=== PATIENT | female | born 1930 | race Caucasian/White ===

== ENCOUNTER 2019-02-02 04:51 | Inpatient (IN) | payer OTHER ==
[~2019-02-02] VITALS: Ht 172.7 cm; Wt 76.7 kg
[2019-02-02 04:55] VITALS: BP_SYST 130
--- NOTE | 2019-02-02 04:55 | NUR ---
Patient to ER bed 4 to gown for evaluation. Side rails up.
[2019-02-02] MEDS ORDERED: ONDANSETRON HCL 4 MG/2 ML VIAL IVP ONE ×3 (05:00→05:45)
[2019-02-02] MEDS ORDERED: NS 500 ML IV ONE (05:00)
--- NOTE | 2019-02-02 05:00 | NUR ---
ER at bedside examining patient.
[2019-02-02] MEDS ORDERED: MORPHINE 2 MG/ML INJ. SYRINGE IVP ONE (05:15)
--- NOTE | 2019-02-02 05:15 | NUR ---
Pt brought in by BLS ambulance. Pt chief complaint of nausea/vomiting for approx 3 days persistently . Pt states she has had vomiting and diarrhea for approx 1 month on and off. Pt awake, alert, oriented x4. Pt denies chest pain, shortness of breath, dizziness. Pt denies any other medical complaint at this time. Pt vss. Resting in ED bed.
--- NOTE | 2019-02-02 06:25 | NUR ---
Unable to do medication reconcilation due to pt unable to recall medications and dosages.
[2019-02-02 07:05] LABS: BASOPHILS % (AUTO) 0.3 % (0.0-2.0); EOSINOPHILS % (AUTO) 0.4 % (0.0-4.0); HEMATOCRIT 38.6 % (36-48); LYMPHOCYTES # (AUTO) 0.5 K/uL (1.0-5.5); LYMPHOCYTES % (AUTO) 7.6 % (20.5-51.5); MEAN CORPUSCULAR HEMOGLOBIN 28 pg (27-31); MEAN CORPUSCULAR HGB CONC 34 % (32-36); MEAN CORPUSCULAR VOLUME 84 fL (79.0-98.0); MONOCYTES # (AUTO) 0.7 K/uL (0.0-1.0); MONOCYTES % (AUTO) 10.5 % (1.7-9.3); NEUTROPHILS # (AUTO) 5.8 K/uL (1.8-7.7); NEUTROPHILS % (AUTO) 81.2 % (40.0-70.0); PLATELET COUNT (AUTO) 69 K/uL (130-430); RED BLOOD CELL COUNT(AUTO) 4.59 MIL/uL (4.2-6.2); RED CELL DISTRIBUTION WIDTH 15.1 % (9.0-15.0); WHITE BLOOD COUNT (AUTO) 7.1 K/uL (4.8-10.8)
--- NOTE | 2019-02-02 07:07 | NUR ---
Report Given to FIONA Montanez and FIONA Garibay
--- NOTE | 2019-02-02 07:15 | NUR ---
report received from Suraj JAIMES. Pt is in stable condition. Will continue to monitor.
[2019-02-02 07:21] LABS: ANION GAP 10 (5-15); CALCIUM 8.5 mg/dL (8.4-11.0); CHLORIDE 100 mmol/L (98-107); CREATININE 0.76 mg/dL (0.55-1.30); GLUCOSE 103 mg/dL (70-99); POTASSIUM 3.3 mmol/L (3.5-5.1); SODIUM SERUM 136 mmol/L (136-145); UREA NITROGEN, BLOOD 24 mg/dL (8-21)
[2019-02-02 07:27] LABS: ALANINE AMINOTRANSFERASE 18 U/L (12-78); ALBUMIN 3.9 g/dL (3.4-4.8); ASPARTATE AMINOTRANSFERASE 16 U/L (10-37); LIPASE 382 U/L (73-393); TOTAL BILIRUBIN 0.8 mg/dL (0.0-1.0)
[2019-02-02] MEDS ORDERED: HYDR-3607 PO (08:05)
[2019-02-02] MEDS ORDERED: LOSA25TA3 PO (08:08)
[2019-02-02] MEDS ORDERED: TRAZ-250 PO (08:08)
[2019-02-02] MEDS ORDERED: METO25TA3 PO (08:08)
[2019-02-02] MEDS ORDERED: LIP10 PO (08:08)
[2019-02-02] MEDS ORDERED: PRO40 PO (08:08)
[2019-02-02] MEDS ORDERED: DONE10TA44 PO (08:08)
[2019-02-02] MEDS ORDERED: LEVO25TA7 PO (08:08)
[2019-02-02] MEDS ORDERED: MEMA10TA21 PO (08:11)
[2019-02-02 08:22] LABS: PROTHROMBIN TIME 10.2 SECS (9.5-12.5)
--- NOTE | 2019-02-02 08:25 | NUR ---
Medication reconciliation completed with information provided by pt's cathryn. Any prior medication reconciliation on file was reviewed and corrected.
--- NOTE | 2019-02-02 08:26 | NUR ---
pt will be admitted under the care of Dr. Mercado. Orders received
--- NOTE | 2019-02-02 08:37 | NUR ---
admission notes: received pt from e.r. under dr rogelio atkins, came from home thru e.r., with diagnosis of vomiting.
[2019-02-02 08:50] VITALS: BP_SYST 140
--- NOTE | 2019-02-02 08:50 | NUR ---
Patient will be admitted to care of Dr Mercado. Admitted to Telemetry unit. Will go to room 104 A. Belongings list completed. Complete and up to date summary report printed. SBAR report to be given at bedside to Ronald JAIMES. IV 22g L hand patent and intact
--- NOTE | 2019-02-02 09:05 | NUR ---
Paged Dr. Mercado through answering service regarding suspension and unable to admit patient.
[2019-02-02 09:19] VITALS: BP_SYST 140
[2019-02-02] MEDS ORDERED: ACETAMINOPHEN 325 MG TABLET PO PRN (09:45)
[2019-02-02] MEDS ORDERED: ONDANSETRON HCL 4 MG/2 ML VIAL IVP PRN (09:45)
[2019-02-02] MEDS ORDERED: FAMOTIDINE 20 MG TABLET PO ONE (10:00)
[2019-02-02] MEDS ORDERED: traZODone HCL 50 MG TABLET (DESYREL) PO ONE (10:15)
[2019-02-02] MEDS ORDERED: HYDROcodone/ACETAMIN 5-325 MG TAB (NORCO/ VICODIN) PO ONE (10:15)
[2019-02-02] MEDS ORDERED: ATORVASTATIN 10 MG TABLET PO ONE (10:15)
[2019-02-02] MEDS ORDERED: METOPROLOL SUCCINATE 25 MG TAB.SR.24H (TOPROL XL) PO ONE (10:15)
[2019-02-02] MEDS ORDERED: MEMANTINE HCL 5 MG TABLET PO ONE (10:15)
[2019-02-02] MEDS ORDERED: LEVOTHYROXINE SODIUM 0.025 MG TABLET PO ONE (10:15)
[2019-02-02] MEDS ORDERED: LOSARTAN POTASSIUM 25 MG TABLET PO ONE (10:15)
[2019-02-02] MEDS: NACL 0.9% 1,000 ML IV SCH ×2 (10:29→21:39)
[2019-02-02 12:39] VITALS: BP_SYST 129
--- NOTE | 2019-02-02 16:00 | NUR ---
pt connected to bilat scd. educated patient that scd can be removed before she use the bedside commode, encouraged to call nurses for assistance.
[2019-02-02 16:35] VITALS: BP_SYST 137
--- NOTE | 2019-02-02 17:00 | NUR ---
patient assisted to bedside commode ( 4th time for the day ), pt having diarrhea, sample sent earlier to lab for stool wbc and stool culture.
--- NOTE | 2019-02-02 19:26 | NUR ---
closing notes, pt has been stable , bp within patients normal limits, pt still having diarrhea but no c/o of abd pain. diarrhe x4-5 times since admission. stool sampl sent for wbc and culture. pt given clear liquid diet as ordered by dr wallis.. pt assisted to bedside commode, endorsed to night nurse.
--- NOTE | 2019-02-02 19:30 | NUR ---
OPENING NOTES Pt and endorsement received from day shift nurse. Pt is AAOx4, lying in bed. Pt on IVF with NS at 100ml/hr and infusing well on left hand G22. No complains of pain or discomfort at this time. No signs of acute distress or SOB noted. Encouraged to use call light when needed. Safety precautions in place with 3 side rails up, wheels locked, bed alarm on and in lowest level. Call light with pt. Will continue to monitor.
[2019-02-02] MEDS: HYDROcodone/ACETAMIN 5-325 MG TAB (NORCO/ VICODIN) PO SCH (21:00)
[2019-02-02 21:32] VITALS: BP_SYST 156
[2019-02-02] MEDS: DONEPEZIL HCL 5 MG TABLET (ARICEPT) PO SCH (21:37)
[2019-02-02] MEDS: MEMANTINE HCL 5 MG TABLET PO SCH (21:38)
--- NOTE | 2019-02-02 21:40 | NUR ---
MED PASS All due meds given and pt tolerated well. Aspiration precaution maintained with head elevated at 45 degrees. No complains of pain and no signs of acute distress noted. Safety precautions in place and call light with pt. Will continue to monitor.
--- NOTE | 2019-02-02 23:00 | NUR ---
IV INSERTION Pt's IV was infiltrated. New IV inserted on left hand G22 by FIONA Jennings, with good blood return and flushable with saline. Pt tolerated well. Reconnected IVF and is infusing well. Will continue to monitor.
[2019-02-03 00:33] VITALS: BP_SYST 150
--- NOTE | 2019-02-03 01:30 | NUR ---
ROUNDS Assisted pt to bedside commode, pt had a minimal amount of watery stool and moderate amount of urine. Perineal care rendered and assisted pt back to bed, barrier cream applied on perineal redness. No signs of acute distress noted. IVF infusing well. Safety precautions in place and call light with pt. Will continue to monitor.
--- NOTE | 2019-02-03 04:02 | NUR ---
ROUNDS Pt is resting in bed with both eyes closed, with visible chest rise and fall with non-labored breathing noted. Pt is easily arousable. No complains of pain and no signs of acute distress noted. IVF infusing well. No needs at this time. Safety precautions in place and call light with pt. Will continue to monitor.
[2019-02-03] MEDS: NACL 0.9% 1,000 ML IV SCH ×2 (04:15→14:21)
--- NOTE | 2019-02-03 06:59 | NUR ---
Nutrition Update Se Scale 14 noted. Pt admitted for Dehydration, Abdominal Pain Diet: Clear liquid BMI: 25.8 kg/m2 RD to follow per nutrition care standards.
[2019-02-03 07:34] LABS: BASOPHILS % (AUTO) 0.4 % (0.0-2.0); EOSINOPHILS % (AUTO) 0.8 % (0.0-4.0); HEMATOCRIT 32.4 % (36-48); HEMOGLOBIN 10.9 g/dL (12.0-16.0); LYMPHOCYTES # (AUTO) 0.6 K/uL (1.0-5.5); LYMPHOCYTES % (AUTO) 19.6 % (20.5-51.5); MEAN CORPUSCULAR HEMOGLOBIN 29 pg (27-31); MEAN CORPUSCULAR HGB CONC 34 % (32-36); MEAN CORPUSCULAR VOLUME 84 fL (79.0-98.0); MONOCYTES # (AUTO) 0.8 K/uL (0.0-1.0); MONOCYTES % (AUTO) 24.3 % (1.7-9.3); NEUTROPHILS # (AUTO) 1.7 K/uL (1.8-7.7); NEUTROPHILS % (AUTO) 54.9 % (40.0-70.0); RED BLOOD CELL COUNT(AUTO) 3.84 MIL/uL (4.2-6.2); RED CELL DISTRIBUTION WIDTH 15.2 % (9.0-15.0); WHITE BLOOD COUNT (AUTO) 3.1 K/uL (4.8-10.8)
[2019-02-03 07:46] LABS: ALANINE AMINOTRANSFERASE 15 U/L (12-78); ANION GAP 9 (5-15); ASPARTATE AMINOTRANSFERASE 17 U/L (10-37); CALCIUM 7.8 mg/dL (8.4-11.0); CHLORIDE 106 mmol/L (98-107); CREATININE 0.58 mg/dL (0.55-1.30); GLUCOSE 92 mg/dL (70-99); POTASSIUM 3.1 mmol/L (3.5-5.1); SODIUM SERUM 139 mmol/L (136-145); TOTAL BILIRUBIN 0.8 mg/dL (0.0-1.0); UREA NITROGEN, BLOOD 18 mg/dL (8-21)
[2019-02-03 08:00] VITALS: BP_SYST 158
--- NOTE | 2019-02-03 08:00 | NUR ---
Note Pt sitting up in bed eating her clear liquids breakfast tray at this time. Tele unit attached and intact. IV in left hand patent and intact infusing IVF's well at this time. No needs noted at this time. Pt next to nurses' station for close observation for needs and care. Call light within reach.
[2019-02-03] MEDS: traZODone HCL 50 MG TABLET (DESYREL) PO SCH (08:44)
[2019-02-03] MEDS: MEMANTINE HCL 5 MG TABLET PO SCH ×2 (08:44→21:58)
[2019-02-03] MEDS: HYDROcodone/ACETAMIN 5-325 MG TAB (NORCO/ VICODIN) PO SCH ×2 (08:45→21:00)
[2019-02-03] MEDS: LEVOTHYROXINE SODIUM 0.025 MG TABLET PO SCH (08:45)
[2019-02-03] MEDS: ATORVASTATIN 10 MG TABLET PO SCH (08:45)
[2019-02-03] MEDS: FAMOTIDINE 20 MG TABLET PO SCH (08:46)
[2019-02-03] MEDS: LOSARTAN POTASSIUM 25 MG TABLET PO SCH (08:46)
[2019-02-03] MEDS: METOPROLOL SUCCINATE 25 MG TAB.SR.24H (TOPROL XL) PO SCH (08:47)
[2019-02-03 08:51] LABS: PLATELET COUNT (AUTO) 73 K/uL (130-430)
--- NOTE | 2019-02-03 11:00 | NUR ---
Note Pt resting in bed, has had numerous loose bowel movements in bed, hygiene care and partial bed bath given frequently. No needs noted at this time. Call light within reach.
[2019-02-03 11:23] VITALS: BP_SYST 142
[2019-02-03] MEDS ORDERED: metroNIDAZOLE 500 mg/NS 100 ML IV ONE (12:00)
--- NOTE | 2019-02-03 14:10 | NUR ---
Note Pt's tele unit was dc'd and returned to night monitor. PT went to assess pt, pt feels too weak and diarrhea too much for pt to ambulate at this time. PT will try again tomorrow. Call light within reach.
[2019-02-03] MEDS: cefTRIAXone 1 GM IVPB PREMIX 50 ML IV SCH (14:17)
[2019-02-03 15:21] VITALS: BP_SYST 135
--- NOTE | 2019-02-03 17:30 | NUR ---
Note Pt's daughter, granddaughters and other family members have been calling frequently for update on pt's status. All calls were referred to pt's daughter Rhoda Arias. Pt stable and resting in bed at this time. Call light within reach.
--- NOTE | 2019-02-03 18:15 | NUR ---
Note Pt sitting up in bed eating her Clear liquids dinner tray. IVF's infusing well through left hand IV site. No SOB/resp distress or pain/discomfort noted at this time. Pt was checked on q1' and PRN all shift for needs and care. Pt has been next nurses' station all shift for close observation for needs and care. Pt denies any needs at this time. Call light within reach.
--- NOTE | 2019-02-03 19:30 | NUR ---
Opening notes Received report. Patient is resting in bed, watching TV. No signs of distress noted. Breathing even and unlabored. IV patent and intact, infusing fluids. Informed patient on needing stool sample, patient states she will try, but she cannot control when she pees. Hygiene care was provided. call light with the patient. Safety precautions in place.
[2019-02-03 20:00] VITALS: BP_SYST 164
[2019-02-03] MEDS: DONEPEZIL HCL 5 MG TABLET (ARICEPT) PO SCH (21:57)
[2019-02-03] MEDS: metroNIDAZOLE 500 mg/NS 100 ML IV SCH (21:58)
--- NOTE | 2019-02-03 22:00 | NUR ---
Medications given. Educated the action and side effects of medications. Patient verbalized understanding and tolerated well. Patient refuses Vicodin. States she does not have pain, only discomfort on bottom from diarrhea. No other needs. Call light with the patient. Safety precautions in place.
--- NOTE | 2019-02-04 | NUR ---
Sleeping Patient sleeping, no signs of distress noted. Breathing even and unlabored, IVF infusing well. No needs. call light with the patient. Safety precautions in place.
[2019-02-04 00:04] VITALS: BP_SYST 150
[2019-02-04] MEDS: NACL 0.9% 1,000 ML IV SCH ×3 (00:15→20:29)
--- NOTE | 2019-02-04 02:00 | NUR ---
Sleeping Patient is sleeping, no signs of distress noted. Breathing even and unlabored. IVF infusing well. Call light with the patient. Safety precautions in place.
--- NOTE | 2019-02-04 04:00 | NUR ---
Resting Patient resting in bed. No signs of distress noted. Breathing even and unlabored. IVF infusing well. Call light with the patient. Safety precautions in place.
[2019-02-04] MEDS: metroNIDAZOLE 500 mg/NS 100 ML IV SCH ×3 (05:50→20:30)
--- NOTE | 2019-02-04 06:50 | NUR ---
Closing notes Patient is resting in bed. No signs of distress noted. Breathing even and unlabored. IV patent and intact, no signs of infiltration noted. Patient denies pain. All needs met throughout the shift. Call light with the patient. Safety precautions in place. Will endorse care to day shift RN.
--- NOTE | 2019-02-04 08:00 | NUR ---
A/Ox4. Pt on IVF with NS at 100ml/hr on left hand #22, intact and patent. No pain nor signs of distress are noted. POC is discussed. Call light in place, bed locked at the lowest position with bed alarm on, will continue to monitor.
[2019-02-04 08:04] LABS: ANION GAP 8 (5-15); CALCIUM 7.6 mg/dL (8.4-11.0); CHLORIDE 106 mmol/L (98-107); CREATININE 0.52 mg/dL (0.55-1.30); GLUCOSE 99 mg/dL (70-99); LACTATE DEHYDROGENASE 150 U/L (81-234); SODIUM SERUM 138 mmol/L (136-145); THYROID STIMULATING HORMONE 2.49 uIu/mL (0.36-3.74); UREA NITROGEN, BLOOD 11 mg/dL (8-21)
[2019-02-04 08:17] LABS: HEMATOCRIT 29.6 % (36-48); HEMOGLOBIN 10.1 g/dL (12.0-16.0); MEAN CORPUSCULAR HEMOGLOBIN 29 pg (27-31); MEAN CORPUSCULAR HGB CONC 34 % (32-36); MEAN CORPUSCULAR VOLUME 84 fL (79.0-98.0); RED BLOOD CELL COUNT(AUTO) 3.52 MIL/uL (4.2-6.2); RED CELL DISTRIBUTION WIDTH 15.4 % (9.0-15.0)
[2019-02-04 08:32] LABS: TOTAL IRON BIND. CAPACITY 240 ug/dL (250-450)
[2019-02-04 08:35] LABS: POTASSIUM 2.4 mmol/L (3.5-5.1)
--- NOTE | 2019-02-04 08:52 | NUR ---
PATIENT ALEC HENLEY RECEIVED A PHONE CALL FROM PATIENT KAREN HENLEY WHO SAID SHE WANTS TO TRANSFER PATIENT TO ANOTHER HOSPITAL. I EXPLAIN THE PROCESS TO KALE AND I ASKED HER WHY SHE WANTS TO TRANSFER THE PATIENT. PER KALE, PATIENT NEEDS TO TRANSFER BECAUSE PATIENT HAS NO WILL TO LIVE. IN THE PATIENT ROOM WITH FIONA SIMENTAL. PATIENT IS AWAKE ON ORIENTED. PT VERBALIZED FEELING OKAY. PATIENT DENIED FEELING DEPRESSED AND DIDNT WANT TO BE TRANSFERRED. PATIENT S VERBALIZED, " I WANT TO LIVE, I APOLOGIZE ABOUT MY NIECE. SHE IS CAUSING TROUBLE. " CONTINOUS MONITORING AND SUPPORT WILL BE GIVEN
[2019-02-04] MEDS: HYDROcodone/ACETAMIN 5-325 MG TAB (NORCO/ VICODIN) PO SCH ×2 (09:00→20:30)
[2019-02-04] MEDS: traZODone HCL 50 MG TABLET (DESYREL) PO SCH (09:06)
[2019-02-04] MEDS: MEMANTINE HCL 5 MG TABLET PO SCH ×2 (09:06→20:30)
[2019-02-04] MEDS: FAMOTIDINE 20 MG TABLET PO SCH (09:07)
[2019-02-04] MEDS: ATORVASTATIN 10 MG TABLET PO SCH (09:07)
[2019-02-04] MEDS: METOPROLOL SUCCINATE 25 MG TAB.SR.24H (TOPROL XL) PO SCH (09:07)
[2019-02-04] MEDS: LEVOTHYROXINE SODIUM 0.025 MG TABLET PO SCH (09:07)
[2019-02-04] MEDS: LOSARTAN POTASSIUM 25 MG TABLET PO SCH (09:08)
[2019-02-04 09:19] LABS: WHITE BLOOD COUNT (AUTO) 4.8 K/uL (4.8-10.8)
[2019-02-04 09:23] LABS: ATYPICAL LYMPHOCYTES % 0 % (0-0); BAND % (MANUAL) 5 % (0-6); LYMPHOCYTES % (MANUAL) 16 % (20-46)
[2019-02-04 09:24] LABS: BASOPHILS % (MANUAL) 0 % (0-2); EOSINOPHILS % (MANUAL) 2 % (0-7); MONOCYTES % (MANUAL) 19 % (0-11)
[2019-02-04 09:25] LABS: PLATELET COUNT (AUTO) 59 K/uL (130-430)
--- NOTE | 2019-02-04 09:49 | NUR ---
Dr. Penny is informed on critical low on potassium. Orders were given.
[2019-02-04] MEDS ORDERED: POTASSIUM CHLORIDE 20 MEQ TAB.PRT.SR PO ONE (10:00)
[2019-02-04] MEDS ORDERED: POTASSIUM CHLORIDE 40 MEQ, LIDOCAINE JECT 2% PF 100 MG 50 MG in NS 250 ML IV ONE ×2 (10:00→17:30)
[2019-02-04] MEDS: cefTRIAXone 1 GM IVPB PREMIX 50 ML IV SCH (10:47)
[2019-02-04 11:20] VITALS: BP_SYST 158
--- NOTE | 2019-02-04 12:15 | NUR ---
Patient is c/o acid reflux. Dr. Penny is called. Awaiting call back.
[2019-02-04] MEDS ORDERED: OMEPRAZOLE Non-Formulary 20 MG CAPSULE.DR PO SCH (13:00)
--- NOTE | 2019-02-04 13:20 | NUR ---
Dr. Penny has returned call. Orders were given.
[2019-02-04] MEDS: CALCIUM CARBONATE 500 MG/ TAB.CHEW PO PRN ×2 (13:58→20:35)
[2019-02-04] MEDS ORDERED: PANTOPRAZOLE SODIUM 40 MG TAB PO ONE (14:30)
[2019-02-04 15:02] VITALS: BP_SYST 159
--- NOTE | 2019-02-04 15:42 | NUR ---
Patient is resting, no signs of distress noted.
[2019-02-04 16:05] LABS: POTASSIUM 3.2 mmol/L (3.5-5.1)
[2019-02-04] MEDS ORDERED: POTASSIUM CHLORIDE 20 MEQ/PKT PACKET PO ONE (16:30)
--- NOTE | 2019-02-04 17:20 | NUR ---
Dietitian Recommendations * Recommend continuing mechanical soft diet * Encourage increase PO intakes * Consider swallow eval -- pt reported difficulty swallowing LP, RD Please refer to Nutrition Assessment for details. Addendum: 02/04/19 at [address] Amended: Links added.
[2019-02-04] MEDS ORDERED: MAGNESIUM SULFATE 50 ML IV ONE (18:00)
--- NOTE | 2019-02-04 18:28 | NUR ---
Patient ate dinner. Tolerated without distress.
[2019-02-04 19:00] VITALS: BP_SYST 153
--- NOTE | 2019-02-04 19:15 | NUR ---
change of shift.pt.presents quiescent affect;calm,viewing tv programming.pt.is utilizing the bsc;pt.presents hx diarrhea.pt.presents et iv acces intact;patent;k+rider administration in progress.general status stable.respiratory status stable;unlalbored@room air.pt capable to reposition self.call light/telephone w/in reach of the pt.
[2019-02-04 20:00] VITALS: BP_SYST 153
--- NOTE | 2019-02-04 20:00 | NUR ---
pt.assessed.v/s assessed;values w/in normal limits.no c/o pain,nausea.pt.assessed for cleanliness.pt.capable to reposition self w/in bed. pt.presents iv access intact;patent,location:lt.hand.iv fluids infusing;k+rider infusion in progress.no c/o pain@iv insertion site2/t k+rider administration. i have apprised the pt.that i may provide snacks/beverages w/in the shift;w/in diet status parameters:;clear liquids. no requests posited @this hour.general status stable.respiratory status stable;unlabored@room air.call light/telephone placed w/in reach of the pt.
[2019-02-04] MEDS: DONEPEZIL HCL 5 MG TABLET (ARICEPT) PO SCH (20:29)
--- NOTE | 2019-02-04 21:00 | NUR ---
2100p medications administered.pt.capable to ingest the medications whole w/out difficulty.no requests posited @this hour.
--- NOTE | 2019-02-04 22:00 | NUR ---
pt.assessed.pt.assessed for cleanliness.pt repositioned.iv access intact;patent.the k+rider administration completed i have initiated the magnisium rider. administration.no requests posited@this hour.no c/.o pain,nausea.general status stable.respiratory status stable@room air;unlabored.call light.telephone placed w/in reach of pt.
[2019-02-05] VITALS: BP_SYST 145
--- NOTE | 2019-02-05 | NUR ---
pt.assessed v/s assessed;values w/in normal limits.pt.assessed for cleanliness.pt.cleaned.pt.repositioned.no c/o pain,nausea. iv access intact;patent.iv fluids infusing.magnesium rider administration completed.general status stable respiratory status stable;unlabored. call light/telephone placed w/in reach of the pt.
--- NOTE | 2019-02-05 02:00 | NUR ---
pt.assessed.pt.had requested assistance to the bsc.i have assisted the pt's return to bed.then pt.sensed the desire for bm. i have placed the pt.upon the bedpan. i return to the room and the pt.stated she wished to rest upon the bedpan.to await call from the pt.for assistance w/the bedpan.
--- NOTE | 2019-02-05 02:30 | NUR ---
i have assisted the pt. w/the bedpan.cleaned.no additional requests posited @this hour.
--- NOTE | 2019-02-05 04:00 | NUR ---
pt.assessed.pt.assisted w/the bedpan.no additional requests posited@this hour.pt.repositioned.no c/o pain,nausea. call light/ telephone placed w/in reach of the pt.
[2019-02-05] MEDS: metroNIDAZOLE 500 mg/NS 100 ML IV SCH ×2 (05:48→15:11)
[2019-02-05] MEDS: NACL 0.9% 1,000 ML IV SCH (05:48)
--- NOTE | 2019-02-05 06:08 | NUR ---
pt.assessed.pt assisted w/the bedpan.i have,measured the bedpan contents.no c/o pain,nausea.no requests posited@this hour.pt.capable to reposition self.i have administered flagyl;abx;ivpb 0600a dose.call light/.telephone placed w/in reach of the pt.
[2019-02-05 06:11] LABS: FOLATE (FOLIC ACID) 14.6 ng/mL (>3.0)
--- NOTE | 2019-02-05 07:25 | NUR ---
Opening Notes Patient received lying comfortably in her bed, alert, awake and verbally responsive, able to verbalize needs and concerns, denies any pain or discomfort at this time. Respiration even and unlabored. IVF infusing well. Discussed plan of care and importance of using call light, patient verbalized understanding. Call light within the reach. Fall precaution observed, bed alarm on, bed at lowest position. Will continue to monitor.
[2019-02-05 08:08] LABS: ALANINE AMINOTRANSFERASE 17 U/L (12-78); ALBUMIN 2.8 g/dL (3.4-4.8); ANION GAP 5 (5-15); ASPARTATE AMINOTRANSFERASE 16 U/L (10-37); CALCIUM 7.7 mg/dL (8.4-11.0); CHLORIDE 104 mmol/L (98-107); CREATININE 0.53 mg/dL (0.55-1.30); GLUCOSE 104 mg/dL (70-99); POTASSIUM 3.2 mmol/L (3.5-5.1); SODIUM SERUM 133 mmol/L (136-145); TOTAL BILIRUBIN 0.7 mg/dL (0.0-1.0); UREA NITROGEN, BLOOD 8 mg/dL (8-21)
[2019-02-05] MEDS: ATORVASTATIN 10 MG TABLET PO SCH (08:22)
[2019-02-05] MEDS: MEMANTINE HCL 5 MG TABLET PO SCH (08:22)
[2019-02-05] MEDS: FAMOTIDINE 20 MG TABLET PO SCH (08:22)
[2019-02-05] MEDS: LEVOTHYROXINE SODIUM 0.025 MG TABLET PO SCH (08:22)
[2019-02-05] MEDS: LOSARTAN POTASSIUM 25 MG TABLET PO SCH (08:22)
[2019-02-05] MEDS: METOPROLOL SUCCINATE 25 MG TAB.SR.24H (TOPROL XL) PO SCH (08:23)
[2019-02-05] MEDS: HYDROcodone/ACETAMIN 5-325 MG TAB (NORCO/ VICODIN) PO SCH (08:23)
[2019-02-05] MEDS: traZODone HCL 50 MG TABLET (DESYREL) PO SCH (08:23)
[2019-02-05 08:25] LABS: BASOPHILS % (AUTO) 0.4 % (0.0-2.0); EOSINOPHILS # (AUTO) 0.1 K/uL (0.0-0.4); EOSINOPHILS % (AUTO) 1.1 % (0.0-4.0); HEMOGLOBIN 10.6 g/dL (12.0-16.0); MEAN CORPUSCULAR HEMOGLOBIN 29 pg (27-31); MEAN CORPUSCULAR HGB CONC 34 % (32-36); MEAN CORPUSCULAR VOLUME 84 fL (79.0-98.0); MONOCYTES # (AUTO) 1.1 K/uL (0.0-1.0); MONOCYTES % (AUTO) 20.1 % (1.7-9.3); NEUTROPHILS # (AUTO) 3.2 K/uL (1.8-7.7); NEUTROPHILS % (AUTO) 59.4 % (40.0-70.0); RED BLOOD CELL COUNT(AUTO) 3.68 MIL/uL (4.2-6.2); WHITE BLOOD COUNT (AUTO) 5.3 K/uL (4.8-10.8)
[2019-02-05 08:30] LABS: PLATELET COUNT (AUTO) 59 K/uL (130-430)
[2019-02-05 08:55] VITALS: BP_SYST 162
[2019-02-05] MEDS ORDERED: PANTOPRAZOLE SODIUM 40 MG TAB PO SCH (09:00)
--- NOTE | 2019-02-05 09:28 | NUR ---
RN ROUNDS Patient resting well, denies any pain or discomfort. Respiration even and unlabored. Call light within the reach. Bed at lowest position. Bed alarm on.
[2019-02-05] MEDS ORDERED: LACT1CAP72 PO (10:27)
[2019-02-05] MEDS ORDERED: FLA250 PO (10:27)
[2019-02-05] MEDS ORDERED: POTA8TAB4 PO (10:27)
--- NOTE | 2019-02-05 11:00 | NUR ---
RN ROUNDS Patient remain to be alert, awake and verbally responsive, Denies any abdominal pain, no nausea or vomiting. Call light within the reach.
[2019-02-05 11:13] VITALS: BP_SYST 160
[2019-02-05] MEDS: cefTRIAXone 1 GM IVPB PREMIX 50 ML IV SCH (12:03)
--- NOTE | 2019-02-05 13:46 | NUR ---
Dr. Fang Rounds/OK to be discharge Seen and examined by MD, notified regarding discharge order from Dr. Mercado, awaiting for his clearance, MD okayed for patient to be discharged.
--- NOTE | 2019-02-05 15:00 | NUR ---
RN ROUNDS Patient resting well, notified regarding being discharged today, callled and spoke to grand daughter Camille, and will be picked up at 4 pm,
[2019-02-05 15:23] VITALS: BP_SYST 149
[2019-02-05 15:25] VITALS: BP_SYST 149
--- NOTE | 2019-02-05 16:38 | NUR ---
D/C Patient to home Patient given medication reconciliation form and D/C instructions. Exit Care provided. Patient verbalized understanding. MD discussed with patient the results and treatment provided. Ambulatory with assistance. Patient in stable condition, ID band removed. IV catheter removed, intact and dressing applied, no active bleeding.Patient educated on pain management, grand daughter at bedside, reminded regarding appointment with PCP and GI in 1 week and to follow-up with pharmacy regarding new medications, patient and granddaughter verbalized understanding. All belongings sent with patient.
--- NOTE | 2019-02-07 14:23 | NUR ---
PHYSICAL THERAPY CO-SIGN The Physical Therapy Progress Notes documented by Cutting Pressman have been reviewed. Reviewed/Co-Signed by: Jessee Bolanos PT Documentation Done by: REJI MARCOS PTA Addendum: 02/07/19 at 1424 by Jessee Bolanos PT Amended: Links added.
== END 2019-02-05 16:40 | disposition home or self-care (01) | DRG 392 ==
LOC: SED 04:51 → STU 08:54 → SMU 02-03 17:18 → STU 02-04 18:44
PROVIDERS: ADMIT Internal Medicine Hospice and Palliative Medicine; ATTEND Internal Medicine Hospice and Palliative Medicine
DX: K52.9 Noninfective gastroenteritis and colitis, unspecified (principal); R65.10 Systemic inflammatory response syndrome (SIRS) of non-infectious origin without acute organ dysfunction; E86.0 Dehydration; E78.5 Hyperlipidemia, unspecified; E03.9 Hypothyroidism, unspecified; I10 Essential (primary) hypertension; E87.6 Hypokalemia; F03.90 Unspecified dementia, unspecified severity, without behavioral disturbance, psychotic disturbance, mood disturbance, and anxiety; G47.00 Insomnia, unspecified; M19.90 Unspecified osteoarthritis, unspecified site; Z79.899 Other long term (current) drug therapy
CPT/HCPCS: 36415; 71045; 80048; 80053; 82607; 82728; 82746; 83540-TC; 83550-TC; 83605; 83615-TC; 83690-TC; 83735-TC; 84132-TC; 84443-TC; 84484; 85007; 85025; 85027; 85610-TC; 85730-TC; 87040-TC; 87045-TC; 87046; 89055; 93005; 96374; 97110-GP; 97530-GP; 99285; G0378; J0696; J2405; J3475; J3480; J3490; J7030; J7050